=== PATIENT | female | born 1995 | race African-American/Black ===

== ENCOUNTER 2018-04-14 21:56 | Emergency (ER) | payer OTHER, SELFPAY ==
[2018-04-14] MEDS ORDERED: Morphine 4 MG/ML Carpuject ONE ×2 (22:19→23:25)
[2018-04-14 22:33] LABS: Pregnancy Test - Urine (BHCG) POSITIVE (Negative)
[2018-04-14 22:34] LABS: Pregu Control Background? CLEAR/WHITE (CLR/WHITE); Pregu Control Bar Appear? YES (CONTROL BAR); Specific Gravity 1.028 (1.002-1.036)
[2018-04-14 23:09] LABS: Clarity Clear (Clear); Specific Gravity, Urine 1.025 (1.005-1.030)
[2018-04-14 23:10] LABS: Bilirubin Negative (Negative); Blood, Urine Negative (Negative); Glucose, Urine (Dipstick) Negative (Negative); Leukocyte Negative (Negative); Nitrite Negative (Negative); Protein, Urine (Dipstick) Negative (Neg-Trace); Urobilinogen 0.2 mg/dL (0.2-1.0)
[2018-04-14] MEDS ORDERED: AMOXicillin 250 MG CAP ONE (23:30)
[2018-04-14] MEDS ORDERED: Acetaminophen 500 MG TAB ONE (23:30)
[2018-04-14] MEDS ORDERED: Bupivacaine 0.25% 10 ML VIAL ONE (23:55)
== END 2018-04-15 00:23 | disposition home or self-care (01) ==
LOC: BURERS 21:56
DX: O99.612 Diseases of the digestive system complicating pregnancy, second trimester (principal); K02.9 Dental caries, unspecified; Z87.891 Personal history of nicotine dependence; Z3A.15 15 weeks gestation of pregnancy
CPT/HCPCS: 81003; 81025; 96372; J2270; S0020

== ENCOUNTER 2018-08-30 14:02 | Emergency (ER) | payer OTHER | END 2018-08-30 14:42 | disposition home or self-care (01) | LOC: BURERS 14:02 | DX: O99.613 Diseases of the digestive system complicating pregnancy, third trimester (principal); K64.4 Residual hemorrhoidal skin tags; Z87.891 Personal history of nicotine dependence; Z79.899 Other long term (current) drug therapy | CPT/HCPCS: 99283 ==